=== PATIENT | female | born 1955 ===

== ENCOUNTER → 2025-03-20 06:09 | Outpatient (CLI) | payer OTHER ==
[~2025-03-20 06:09] MED LIST: COZAAR100 MG PO; DILTIAZEM HCL120 MG; PROMACTA12.5 MG PO; SIMVASTATIN10 MG PO; SYNTHROID50 MCG PO; TRADJENTA5 MG PO
[2025-03-20 06:52] LABS: INR 1.19
== END | disposition home or self-care (01) ==
LOC: LAB 06:09
DX: D68.8 Other specified coagulation defects (principal)

== ENCOUNTER 2025-03-20 09:00 | Inpatient (IN) | payer OTHER ==
[2025-02-20 15:20] VITALS: BP 131/76
[2025-03-18 10:33] VITALS: BP 149/70
[~2025-03-20] VITALS: Ht 167.6 cm; Wt 98.4 kg
[~2025-03-20 09:00] MED LIST changes: +BUPIVACAINE HCL/MPF 0.5% 30ML VIAL ONE; +LIDOCAINE HCL 1%/EPINEPHRINE 20ML VIAL IJ ONE
[2025-03-20] MEDS ORDERED: POVIDONE-IODINE 118 ML BOTT TOP ONE (09:58)
[2025-03-20] MEDS ORDERED: BUPIVACAINE HCL/MPF 0.5% 30ML VIAL ONE (09:58)
[2025-03-20] MEDS ORDERED: CLINDAMYCIN PHOSPHATE 150 MG/ML (600mg) ONE (09:58)
[2025-03-20] MEDS ORDERED: METRONIDAZOLE/SODIUM CHLORIDE 500 MG/100 ML PIGGYBACK IV ONE ×2 (09:59→15:29)
[2025-03-20] MEDS ORDERED: THROMBIN,HU/FIBRINOGEN/CALCIUM 10 ML SYRINGE TOP ONE (12:19)
[2025-03-20] MEDS ORDERED: OxyCODONE HCL 5 MG TABLET (ROXICODONE) PO PRN (13:30)
[2025-03-20] MEDS ORDERED: MORPHINE SULFATE 4 MG/ML CARTRIDGE IV PRN (13:30)
[2025-03-20] MEDS ORDERED: RINGERS SOLUTION,LACTATED 1,000 ML IV SCH (13:30)
[2025-03-20] MEDS ORDERED: GENTAMICIN SULFATE 40 MG/ML VIAL IV ONE (13:45)
[2025-03-20] MEDS ORDERED: SUGAMMADEX SODIUM 200 MG/2 ML VIAL IV ONE (14:15)
[2025-03-20 15:08] LABS: BASO % 0.2 % (0.1-1.2); EOS # 0.02 (0.04-0.54); EOS % 0.3 % (0.7-7.0); LYMPH # 0.99 (1.18-3.74); LYMPH % 16.5 % (19.3-53.1); MEAN PLATELET VOLUME 10.80 fl (9.4-12.4); MONO # 0.53 (0.24-0.82); MONO % 8.8 % (4.7-12.5); NEUT # 4.45 (1.56-6.13); NEUT % 74.0 % (34.0-71.1); RED CELL DISTRIBUTION WIDTH 13.2 % (11.6-14.4)
[2025-03-20] MEDS ORDERED: SIMETHICONE 125 MG CAPSULE PO ONE (15:28)
[2025-03-20] MEDS ORDERED: METOCLOPRAMIDE HCL 5 MG/ML VIAL ONE (15:28)
[2025-03-20] MEDS ORDERED: ACETAMINOPHEN 500 MG GEL..CAP PO ONE (15:28)
[2025-03-20] MEDS ORDERED: GENTAMICIN SULFATE 40 MG/ML VIAL ONE (15:28)
[2025-03-20] MEDS ORDERED: METRONIDAZOLE/SODIUM CHLORIDE 500 MG/100 ML PIGGYBACK IV SCH (17:00)
[2025-03-20] MEDS ORDERED: METOCLOPRAMIDE HCL 5 MG/ML VIAL IV SCH (17:00)
[2025-03-20] MEDS ORDERED: SIMETHICONE 125 MG CAPSULE PO SCH (17:00)
[2025-03-20 17:07] LABS: BUN CREA RATIO 18.0 (7.0-25.0); CREATININE SERUM 0.78 mg/dL (0.55-1.02); GFR 72.8; GLUCOSE FASTING 178.0 mg/dL (65-100); OSMOLALITY SERUM 294.0 MOSM/KG (275-295)
[2025-03-20] MEDS ORDERED: ACETAMINOPHEN 500 MG GEL..CAP PO SCH (18:00)
[2025-03-20 18:47] VITALS: BP 138/73
[2025-03-20] MEDS ORDERED: DOCUSATE SODIUM 100MG CAP PO SCH (21:00)
[2025-03-20] MEDS ORDERED: GABAPENTIN 300 MG CAPSULE PO SCH (21:00)
[2025-03-20] MEDS ORDERED: FAMOTIDINE/PF 20 MG/2 ML VIAL IV PUSH SCH (21:00)
[2025-03-21] VITALS: BP 118/73; O2SAT 96
[2025-03-21 01:24] LABS: BASO % 0.2 % (0.1-1.2); EOS # 0.01 (0.04-0.54); EOS % 0.2 % (0.7-7.0); LYMPH # 0.76 (1.18-3.74); LYMPH % 13.8 % (19.3-53.1); MEAN PLATELET VOLUME 11.20 fl (9.4-12.4); MONO # 0.60 (0.24-0.82); MONO % 10.9 % (4.7-12.5); NEUT # 4.11 (1.56-6.13); NEUT % 74.7 % (34.0-71.1); RED CELL DISTRIBUTION WIDTH 13.0 % (11.6-14.4)
[2025-03-21 01:31] LABS: BUN CREA RATIO 27.0 (7.0-25.0); CREATININE SERUM 0.56 mg/dL (0.55-1.02); GLUCOSE FASTING 164.0 mg/dL (65-100); OSMOLALITY SERUM 291.0 MOSM/KG (275-295)
[2025-03-21 01:34] LABS: GFR 106.71
[2025-03-21 08:44] VITALS: BP 93/47
[2025-03-21] MEDS ORDERED: ENOXAPARIN SODIUM 40 MG/0.4 ML SYRINGE SUBCUTANEO SCH (09:00)
[2025-03-21] MEDS ORDERED: levoFLOXacin IN DEXTROSE 5 % 500MG/100ML PIGGYBAG IV SCH (09:00)
[2025-03-21 16:37] VITALS: BP 134/78
[2025-03-22 00:42] VITALS: BP 112/65
[2025-03-22 02:27] LABS: BASO % 0.5 % (0.1-1.2); EOS # 0.10 (0.04-0.54); EOS % 1.7 % (0.7-7.0); LYMPH # 1.90 (1.18-3.74); LYMPH % 31.6 % (19.3-53.1); MEAN PLATELET VOLUME 12.20 fl (9.4-12.4); MONO # 0.80 (0.24-0.82); NEUT # 3.18 (1.56-6.13); NEUT % 52.7 % (34.0-71.1); RED CELL DISTRIBUTION WIDTH 13.4 % (11.6-14.4)
[2025-03-22 02:41] LABS: ALT/SGPT 73.0 U/L (12-78); AST/SGOT 59.0 U/L (15-37); BILIRUBIN TOTAL 1.36 mg/dL (0.3-1.2); BUN CREA RATIO 20.0 (7.0-25.0); CREATININE SERUM 0.61 mg/dL (0.55-1.02); GFR 96.68; GLOBULINA 2.8 G/DL (2.4-3.5); GLUCOSE FASTING 113.0 mg/dL (65-100); OSMOLALITY SERUM 293.0 MOSM/KG (275-295)
[2025-03-22 03:07] LABS: MONO % 13.3 % (4.7-12.5)
[2025-03-22 11:11] VITALS: BP 131/66
== END 2025-03-22 09:22 | disposition home or self-care (01) | DRG 355 ==
LOC: CIR.AMB 09:00 → OB/GYN 10:00 → O/R 10:00 → OB/GYN 10:00 → CIR.AMB 12:00 → OB/GYN 18:25
PROVIDERS: Obstetrics & Gynecology; ADMIT Surgery; ATTEND Obstetrics & Gynecology Gynecologic Oncology
PROC: 0DBW0ZZ Excision of Peritoneum, Open Approach (ICD-10-PCS; 2025-03-20)
PROC: 0DBU0ZZ Excision of Omentum, Open Approach (ICD-10-PCS; 2025-03-20)
PROC: 0UT70ZZ Resection of Bilateral Fallopian Tubes, Open Approach (ICD-10-PCS; 2025-03-20)
PROC: 0UT20ZZ Resection of Bilateral Ovaries, Open Approach (ICD-10-PCS; 2025-03-20)
PROC: 07BC0ZZ Excision of Pelvis Lymphatic, Open Approach (ICD-10-PCS; 2025-03-20)
PROC: 3E1M38Z Irrigation of Peritoneal Cavity using Irrigating Substance, Percutaneous Approach (ICD-10-PCS; 2025-03-20)
PROC: 0WQF0ZZ Repair Abdominal Wall, Open Approach (ICD-10-PCS; principal; 2025-03-20 07:00)
PROC: 0UT90ZZ Resection of Uterus, Open Approach (ICD-10-PCS; 2025-03-20 07:00)
DX: K42.0 Umbilical hernia with obstruction, without gangrene (principal); K43.2 Incisional hernia without obstruction or gangrene; C54.1 Malignant neoplasm of endometrium; N84.0 Polyp of corpus uteri; D27.1 Benign neoplasm of left ovary; C53.9 Malignant neoplasm of cervix uteri, unspecified; C57.3 Malignant neoplasm of parametrium